=== PATIENT | female | born 1995 | race Caucasian/White ===

== ENCOUNTER 2017-10-22 04:04 | Emergency (ER) | payer OTHER ==
[2017-10-22 04:46] LABS: SQUAMOUS EPITHIAL 9 /hpf (0-5); URINE BACTERIA RARE (<OCC); URINE BILIRUBIN NEGATIVE (NEGATIVE); URINE BLOOD NEGATIVE (NEGATIVE); URINE CLARITY Hazy (Clear); URINE COLOR Yellow (YELLOW); URINE GLUCOSE (UA) NORMAL (Normal); URINE LEUKOCYTE ESTERASE 3+ Leu/uL (Negative); URINE PROTEIN NEGATIVE (NEGATIVE); URINE UROBILINOGEN NORMAL mg/dL (0.2-1.0)
--- NOTE | 2017-10-22 04:59 | OBHP ---
Datetime: 10/22/2017 04:56 IP Adm Impression: Term, intrauterine IP Admit Plan: Discharge home Admit Comment, IP Provider: at 37=weeks amewitb c/o ctxs started since 2 am, irrg 06/13,no vb l of+fm ohx 36week de pmh de med pnv all nkda psh de sochde ve closed a/p at 37=we early labor dc home ptl gi po0hy f/u in clinic Pelvic Type - PN: Adequate Extremities - PN: Normal Abdomen - PN: Normal Back - PN: Normal Breast - PN: Normal Lungs - PN: Normal Heart - PN: Normal Thyroid - PN: Normal Neurologic - PN: Normal HEENT - PN: Normal General - PN: Normal FHR - Baseline A Provider: 130 Contraction Comments Provider: irrg EGA AdmitDate IP: 37.1 Vital Signs Provider: Reviewed; Within Normal Limits IP Chief Complaint: Uterine contractions NICHD Variability Prov Fetus A: Moderate 6-25bpm NICHD Accel Fetus A IP Provider: 15X15 FHR Category Provider Fetus A: Category I Dilatation, Provider: 0 Effacement, Provider: 0 Station, Provider: -3 Genitourinary Exam: Normal DTRs - PN: Normal
--- NOTE | 2017-10-22 05:01 | OBDCSUM ---
Datetime: 10/22/2017 04:44 Discharged to, Provider: Home Follow up at, Provider: clinic Disch Instr Activity: Normal activity Disch Instr Diet: Regular Discharge Time: 10/22/2017 04:59 Follow up in weeks, Provider: as schedule Disch Referrals: None Discharge Comment, Provider: dc home ptl gi po0hy f/u in clinic Discharge Diagnosis Prov Other: 37we nst
[2017-10-22 09:08] VITALS: BP 125/83; PULSE 89; RESP 18; TEMP 98.8; O2SAT 100
== END 2017-10-22 05:02 | disposition home or self-care (01) ==
LOC: C.EROB 04:04
DX: O47.1 False labor at or after 37 completed weeks of gestation (principal); Z3A.37 37 weeks gestation of pregnancy

== ENCOUNTER 2017-11-01 05:00 | Inpatient (IN) | payer OTHER ==
[2017-11-01 05:19] VITALS: BMI 26.2
[2017-11-01] MEDS ORDERED: Lactated Ringer's 1,000 ML IV ONE (05:56)
[2017-11-01] MEDS ORDERED: Lactated Ringer's 1,000 ML IV SCH (06:00)
--- NOTE | 2017-11-01 06:21 | OBHP ---
Datetime: 11/01/2017 06:01 IP Adm Impression: Term, intrauterine ; Active labor; Intact Membranes IP Admit Plan: Admit to unit; Initiate labor protocol Admit Comment, IP Provider: 21 y.o. , LMP 01/18/17, revised DENZEL 11/11/17, EGA 38w 4d by sono at 21w 5d c/o Ctx: onset in AM 10/31/17; stronger as of 2300 hours - pain scale then 8/10; then, as of 0400 hours, every 3-5 minutes. (+) AFM; denies LOF, VB. care: [facility]; all labs negative to date; GBS (-) P Ob: , 2015, 36w 5d, female, 5lb 4oz, [facility]; no other complications P RN IV THERAPY: 12 x monthly x 7. Denies STI, abnormal Pap PMH: denies PSH: denies NKDA Meds: PNV - QD Soc Hx: denies tobacco, illicit drug or EtOH use. 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 Father alive 56 y.o. - HTN. No fam h/o cancer P.E.: as abov.e WD in obvious discomfort with pain of Ctx. Awake, laert, oriented to time, person and place. Pleasant and cooperative. Mother present Assessment: 21 y.o. P0101, 38w 4d, active labor. GBS (-). Category 1 tracing. Patient requesting e pidural for pain relief. Clinically stable. Plan: 1) Admit 2) NPO 3) IVFs 4) Admission labs 5) Continuous EFM 6) Anesthesia consult 7) Anticipate vaginal delivery Pelvic Type - PN: Adequate Extremities - PN: Normal Abdomen - PN: Normal Back - PN: Normal Breast - PN: Normal Lungs - PN: Normal Heart - PN: Normal Thyroid - PN: Not Done Neurologic - PN: Normal HEENT - PN: Normal General - PN: Normal Weight - Estimated: 3178 Presentation-Admit: Vertex FHR - Baseline A Provider: 135 Membranes, Provider: Intact Contraction Comments Provider: 2-4 Comments, ACOG Physical Exam: Abdomen: gravid. Moderately firm with contractions. Fundal height 36 cm All othr systems reviewed and are negative Gestation - Est Wks by US: 38w 4d IP Hx Assessment: The History has been Reviewed and is Current EGA AdmitDate IP: 39.4 Vital Signs Provider: Reviewed; Within Normal Limits IP Indication for Induction: Not Applicable IP Chief Complaint: Uterine contractions NICHD Variability Prov Fetus A: Moderate 6-25bpm NICHD Accel Fetus A IP Provider: 15X15 FHR Category Provider Fetus A: Category I NICHD Decel Fetus A IP Provider: None Dilatation, Provider: 7 Effacement, Provider: 70 Station, Provider: -2 Genitourinary Exam: Normal DTRs - PN: Normal
[2017-11-01 06:32] LABS: BASO % 0.3 % (0.0-2.0); EOS # 0.1 K/uL (0.0-0.7); EOS % 0.5 % (0.0-4.0); HEMOGLOBIN 11.5 g/dL (11.0-16.0); LYMPH # 1.9 K/uL (1.0-4.3); LYMPH % 15.3 % (20.0-40.0); MEAN CELL VOLUME 81.6 fL (81.0-99.0); MEAN CORPUSCULAR HEMOGLOBIN 27.6 pg (27.0-31.0); MEAN CORPUSCULAR HGB CONC 33.9 g/dL (33.0-37.0); MEAN PLATELET VOLUME 9.1 fL (7.2-11.7); MONO # 0.5 K/uL (0.0-0.8); MONO % 4.2 % (0.0-10.0); NEUT # 9.7 K/uL (1.8-7.0); NEUT % 79.7 % (50.0-75.0); RBC 4.17 Mil/uL (3.80-5.20); RED CELL DISTRIBUTION WIDTH 14.4 % (11.5-14.5); WHITE BLOOD COUNT 12.2 K/uL (4.8-10.8)
[2017-11-01 06:37] LABS: SQUAMOUS EPITHIAL 20 /hpf (0-5); URINE BACTERIA RARE (<OCC); URINE BILIRUBIN NEGATIVE (NEGATIVE); URINE BLOOD NEGATIVE (NEGATIVE); URINE CLARITY Hazy (Clear); URINE COLOR Yellow (YELLOW); URINE GLUCOSE (UA) NORMAL (Normal); URINE LEUKOCYTE ESTERASE 3+ Leu/uL (Negative); URINE PROTEIN 1+ mg/dL (NEGATIVE); URINE UROBILINOGEN NORMAL mg/dL (0.2-1.0)
[2017-11-01 06:57] LABS: BARBITURATES, UR NEGATIVE (NEGATIVE); BENZODIAZEPINES, UR NEGATIVE (NEGATIVE); OPIATES, UR NEGATIVE (NEGATIVE); PHENCYCLIDINE, UR NEGATIVE (NEGATIVE)
[2017-11-01] MEDS ORDERED: Bupivacaine HCl/FentaNYL Cit 100 ML EPI ONE (07:34)
[2017-11-01] MEDS ORDERED: Apap-Butalbital-Caffeine 325-50-40mg Tab PO PRN (09:33)
--- NOTE | 2017-11-01 10:36 | OBPN ---
Datetime: 11/01/2017 10:29 IP Progress Impression: Normal progression of labor IP Procedures: Sterile Vag Exam IP Progress Plan: Continue present management; Anticipate Vaginal Delivery Contraction Comments Provider: 1-2 FHR - Baseline A Provider: 135 Gestation - Est Wks by US: 38w 4d Presentation-Admit: Vertex IP Progress Note Comment: Patient comfortable - S/P epidural Cervical exam: as above. ROM occurred during exam - copious amount of clear fluid. Assessment: 21 y.o. P0101, at end of stage 1 of labor. Category 1 tracing. Clinically stable. Plan: 1) Will start pushing when patient feels more vaginal pressure. 2) Anticipate vaginal delivery Vital Signs Provider: Reviewed; Within Normal Limits NICHD Accel Fetus A IP Provider: 15X15 FHR Category Provider Fetus A: Category I NICHD Variability Prov Fetus A: Moderate 6-25bpm Dilatation, Provider: 10 Effacement, Provider: 100 Station, Provider: 2 NICHD Decel Fetus A IP Provider: None Datetime: 11/01/2017 06:01 Membranes, Provider: Intact Weight - Estimated: 3178
--- NOTE | 2017-11-01 12:00 | OBDS ---
DELIVERY PERSONNEL Delivery Doctor: Kannan Mcconnell MD [employer] Agent: Ascencion Lopez RN Anesthesiologist: DR. DUKE MATERNAL INFORMATION Delivery Anesthesia: Epidural Medications in Delivery: pitocin 20 units Estimated Blood Loss (ml): 200 Maternal Complications: None RN Comments: noneventful delivery of a 38.4 wks IUP via to a vaible baby girl apgars 9-9 Provider Comments: Uncomplicated vaginal deliveryof live female infant, MARIO position, over intact pe rineum. 's mouth and nose bulb suctioned on perineum. Umbilical cord doubly clamped and cut; in margot placed on mother's abdomen. Spontaneous delivery of placenta: grossly intact, 3 vessel cord Uterus explored; evacuated of clots; contracted and firm. Cervix, vagina, perineum inspected - no lacerations. Hemostasis assured. Patient tolerated procedure well; mother and infant bonding EBL 200 mL Weight 6lb 4oz 's 9/9 LABOR SUMMARY EDC: 11/11/2017 00:00 No. Babies in Womb: 1 LABOR INFORMATION Onset of Labor: 10/31/2017 23:00 Group B Beta Strep: Negative MEMBRANES Membranes Rupture Method: Spontaneous Amniotic Fluid Color: Clear Amniotic Fluid Amount: Moderate Amniotic Fluid Odor: Normal STAGES OF LABOR Stage 3 hrs: 0 Stage 3 min: 6 Total Time in Labor hrs: 12 Total Time in Labor min: 26 VAGINAL DELIVERY Episiotomy: None Laceration Extension: N/A Laceration Type: None Laceration Repair: Not Applicable Sponge Count Correct: Yes Sharps Count Correct: N/A BABY A INFORMATION Infant Delivery Date/Time: 11/01/2017 11:20 Method of Delivery: Vaginal Born in Route : No : N/A Forceps: N/A Vacuum Extraction: N/A Shoulder Dystocia : No SHOULDER DYSTOCIA BABY A Infant Delivery Date/Time: 11/01/2017 11:20 PRESENTATION/POSITION BABY A Presentation: Cephalic Cephalic Presentation: Vertex Vertex Position: Right Occipital Anterior Breech Presentation: N/A PLACENTA INFORMATION BABY A Placenta Delivery Time : 11/01/2017 11:26 Placenta Method of Delivery: Spontaneous Placenta Status: Delivered SCORES BABY A Heart Rate 1 min: >100 bpm Resp Effort 1 min: Good Cry Reflex Irritability 1 min: Cough or Sneeze or Pulls Away Muscle Tone 1 min: Active Motion Color 1 min: Body [place], Extremities Blue Resuscitation Effort 1 min: N/A SCORE 1 MIN: 9 Heart Rate 5 min: >100 bpm Resp Effort 5 min: Good Cry Reflex Irritability 5 min: Cough or Sneeze or Pulls Away Muscle Tone 5 min: Active Motion Color 5 min: Body [place], Extremities Blue Resuscitation Effort 5 min: N/A SCORE 5 MIN: 9 INFORMATION BABY A Gestational Age at Delivery: 38.4 Gestational Status: Term Infant Outcome : Liveborn Infant Condition : Stable Infant Sex: Female IDENTIFICATION/MEDS BABY A ID Band Number: [id number] Sensor Number: [id number] WEIGHT/LENGTH BABY A Infant Birthweight (gms): 2825 Infant Weight (lb): 6 Weight (oz): 4 Infant Length Inches: 19.00 Length cms: 48.3 CORD INFORMATION BABY A No. Cord Vessels: 3 Nuchal Cord : N/A Nuchal Cord Other: N/A True Knot: N/A Infant Cord pH Baby Arterial: N/A Cord pH Baby Venous: N/A Cord Blood Taken: Yes Banking/Donate Info: N/A Infant Suction: Mouth; Nose
[2017-11-01] MEDS ORDERED: Oxycodone/Acetaminophen 5/325 mg Tab PO PRN (14:23)
[2017-11-01 15:49] VITALS: RESP 18
[2017-11-02 07:51] LABS: BASO % 0.3 % (0.0-2.0); EOS # 0.3 K/uL (0.0-0.7); LYMPH # 2.2 K/uL (1.0-4.3); LYMPH % 15.6 % (20.0-40.0); MEAN CELL VOLUME 81.8 fL (81.0-99.0); MEAN CORPUSCULAR HEMOGLOBIN 27.9 pg (27.0-31.0); MEAN CORPUSCULAR HGB CONC 34.1 g/dL (33.0-37.0); MONO # 0.6 K/uL (0.0-0.8); MONO % 4.3 % (0.0-10.0); NEUT # 10.8 K/uL (1.8-7.0); NEUT % 77.8 % (50.0-75.0); RBC 3.42 Mil/uL (3.80-5.20); RED CELL DISTRIBUTION WIDTH 14.6 % (11.5-14.5); WHITE BLOOD COUNT 13.9 K/uL (4.8-10.8)
[2017-11-02 07:54] LABS: HEMOGLOBIN 9.5 g/dL (11.0-16.0)
--- NOTE | 2017-11-02 10:16 | OBPPN ---
Datetime: 11/02/2017 10:14 PP Pain Prov: Within normal limits PP Nausea Prov: Denies PP Flatus Prov: Yes PP BM Prov: No PP Breasts Prov: Normal PP Heart Prov: Normal PP Lungs Prov: Normal PP Abdomen/Uterus Prov: Normal PP Lochia Prov: Normal PP Vulva/Perineum Prov: Normal PP CVA Tenderness Prov: Normal PP Extremities Prov: Normal PP C/S Incision Prov: Not Applicable PP Progress Prov: Normal PP Impression Prov: Normal progression PP Plan Prov: Continue present management PP Progress Note Prov: pt seen and examiend reprots pain controlled with medicaion. pt ambuating voi ding passing flatus, tolerted regular diet, denies any fever, chills, nasue, vomitnv, cp, sob. pt isb reat feedign denies any feeling of sadnes or depression. pt denies any lightheadnes,d izzyness. VSS PE GEN NAD AA ox 3 RESP: CTAB?l CVR: RRR, +S1/S2 ABD: soft, NT/ND, Fundus firm at level of umbilicis VE: minimal lochia, non foul smelling EXT: No calf tendnerss b/l, engaitve nicol's sign A/P s/p ppd #1 doign well am labs pain manamgnet encourage ambation and breast feeding IP PP Procedures: None Vital Signs Provider PP: Reviewed; Within Normal Limits
[2017-11-02] MEDS: Multiple Vitamins Tab PO SCH (11:50)
[2017-11-03] MEDS: Multiple Vitamins Tab PO SCH (10:22)
[2017-11-03 10:25] VITALS: BP 123/84; PULSE 70; O2SAT 100
[2017-11-03] MEDS ORDERED: Measles, Mumps, and Rubella 0.5 ML VIAL SC ONE (11:55)
--- NOTE | 2017-11-03 13:42 | OBDCSUM ---
Datetime: 11/03/2017 11:26 Discharged to, Provider: Home Follow up at, Provider: ISHAN Dhaliwal Disch Instr Activity: Normal activity Disch Instr Diet: Regular Discharge Diet restrict Prov: None Discharge Instructions, Provider: Routine instructions given Discharge Diagnosis, Provider: Term Delivered Discharge Time: 11/03/2017 13:00 Follow up in weeks, Provider: 6 weeks Disch Referrals: None Contraception discussed, Prov: Yes Disch Activity Restrictions: No sexual activity; Nothing in vagina - [place], tampons, douche Discharge Diagnosis Prov Other: Rubella equivocal Anemia Contraception counseling Contraception after Delivery: Depo-Provera Datetime: 11/03/2017 10:26 Disch Instr Diet: Regular
--- NOTE | 2017-11-03 13:44 | OBPPN ---
Datetime: 11/03/2017 13:32 PP Pain Prov: Within normal limits PP Nausea Prov: Denies PP Flatus Prov: Yes PP BM Prov: Yes PP Breasts Prov: Normal PP Heart Prov: Normal PP Lungs Prov: Normal PP Abdomen/Uterus Prov: Normal PP Lochia Prov: Normal PP Vulva/Perineum Prov: Normal PP CVA Tenderness Prov: Normal PP Extremities Prov: Normal PP C/S Incision Prov: Not Applicable PP Progress Prov: Normal PP Comments Phys Exam Prov: Abdomen: Soft. Non distended. Fundus firm, mobile, non tender 1-2 FB bel ow umbilicus. Mild lochia rubra Extremities: no calf tenderness All other systems reviewed and are negative PP Impression Prov: Normal progression PP Plan Prov: Discharge PP Progress Note Prov: Patient seen at approximately 1000 hours: received in room 451, in good spiri ts. (+) exclusively. Reports mild cramps - relieved with motrin. Denies dizziness, lig htheadedness, nausea or vomiting. Ambulating and voiding without difficulty. P.E.: as above. WD in NAD. Awake, alert, oriented to time, person and place. Pleasant and juanita ative. FOB present. - PPD#1 H/H 9.5. Rh(+). Rubella - equivocal Assessment: PPD#2, 21 y.o. P2, S/P . Afebrile, vital signs stable. Rubella - equivocal. Mild anemia noted. Patient is asymptomatic and hemodynamically stable. Interested in depoProvera for con traception. Patient is clinically stable. Plan: 1) Discharge home 2) MMR vaccine prior to discharge 3) See full discharge instructions IP PP Procedures Comments: MMR vaccine Vital Signs Provider PP: Reviewed; Within Normal Limits
[2017-11-03 20:22] VITALS: TEMP 97
== END 2017-11-03 14:00 | disposition home or self-care (01) | DRG 373 ==
LOC: C.EROB 05:00 → C.4D 06:02 → C.4M 13:40
PROVIDERS: ADMIT Obstetrics & Gynecology; ATTEND Obstetrics & Gynecology
PROC: 10E0XZZ Delivery of Products of Conception, External Approach (ICD-10-PCS; principal; 2017-11-01)
DX: O99.02 Anemia complicating childbirth (principal); D64.9 Anemia, unspecified; Z3A.38 38 weeks gestation of pregnancy; Z37.0 Single live birth